=== PATIENT | female | born 1970 | race Caucasian/White ===

== ENCOUNTER 2019-09-18 10:12 | Emergency (ER) | payer OTHER, SELFPAY ==
[2019-09-18 10:14] VITALS: BP 126/74; BP 129/79; PULSE 72; PULSE 75; RESP 18; TEMP 36.4; O2SAT 95; BMI 36.3
--- NOTE | 2019-09-18 10:25 | CT_ITS ---
STUDY: CT BRAIN WITHOUT CONTRAST REASON FOR EXAM: Female, 49 years old. Head injury due to a fall. Laceration overlying the left orbit. RADIATION DOSAGE (If Supplied By Facility): CTDIvol = ( 44.99 ) mGy, DLP = ( 779.24 ) mGycm TECHNIQUE: Transaxial CT imaging of the brain was performed without administration of intravenous contrast material. Individualized dose optimization techniques were used for this CT. COMPARISON: No relevant priors. FINDINGS: Small soft tissue hematoma overlying the left periorbital region. Normal calvarium. Normal size ventricles and extra-axial spaces for the patient''s age. Normal white matter tracts of the cerebral hemispheres. Normal basal ganglia and thalami. Normal brainstem. Normal cerebellum. There is no intracranial hemorrhage. There are no findings of an acute ischemic infarction. Normal visualized paranasal sinuses. CT/Brain/Head without Contrast IMPRESSION: Small left periorbital hematoma. Electronically Signed: Saúl Lo, at 11:25 EST , Service support ,
--- NOTE | 2019-09-18 10:25 | CT_ITS ---
STUDY: CT CERVICAL SPINE WITHOUT CONTRAST REASON FOR EXAM: Female, 49 years old. Head injury due to a fall. RADIATION DOSAGE (If Supplied By Facility): CTDIvol = ( 25.72 ) mGy, DLP = ( 550.73 ) mGycm TECHNIQUE: High resolution transaxial imaging was performed without contrast material. Sagittal and coronal images were reconstructed. Individualized dose optimization techniques were used for this CT. COMPARISON: None FINDINGS: Normal craniovertebral junction. Normal anterior atlantoaxial articulation. Normal odontoid process. There is straightening of the normal cervical lordosis. Normal vertebral bodies and posterior osseous elements. C2-3: Normal endplates. Normal disc height and morphology. Normal central canal and intervertebral neuroforamina. C3-4: Normal endplates. Normal disc height and morphology. Normal central canal and intervertebral neuroforamina. C4-5: Normal endplates. Normal disc height and morphology. Normal central canal and intervertebral neuroforamina. C5-6: Moderate degree of disc space narrowing with posterior spondylosis. Posterior spondylosis with deformity of the thecal sac anteriorly. C6-7: Normal endplates. Normal disc height and morphology. Normal central canal and intervertebral neuroforamina. C7-T1: Normal endplates. Normal disc height and morphology. Normal central canal and intervertebral neuroforamina. Normal visualized soft tissue structures. CT/Spine Cervical without Contras IMPRESSION: Moderate degree of disc space narrowing and spondylosis at the C5-C6 level. Posterior spondylosis at the C5-C6 level with deformity of the anterior aspect of the thecal sac. Electronically Signed: Saúl Lo, at 11:26 EST , Service support ,
--- NOTE | 2019-09-18 10:26 | ED.VIS.FALL ---
History of Present Illness Chief Complaint: Fall Informant: Patient Occurred: Today Mechanism/Context: Same level fall, Slip Usually ambulates: Without assistance Quality of Pain: Aching Associated Symptoms: Parasthesias - hands Narrative: Patient is a 49-year-old female with history of bone spurs in her hip on diclofenac presenting after mechanical fall. Patient states she slipped on water at home and fell forward. She is hit her head in the door jam. Patient not lose consciousness. She was able to get herself back up and felt nauseous so she laid down again. She sustained an injury to her left eyebrow. She denies any vision changes. She is not sure her last tetanus was. She also notes that her hands feel tingly and painful. She not have any associated weakness. Patient arrived via EMS in a c-collar and on a board. Patient denies any weakness of her lower extremities. She denies any incontinence since the episode. She denies any other complaints at this time. Tetanus Immunization: Unknown Past Medical History - Allergies and Home Meds Allergies/Adverse Reactions: Allergies No Known Allergies Allergy (Verified 09/18/19 10:13) Primary Care Physician: Samuel Doctor,Out of [NON-STAFF] - Past Medical History: None Surgical History: noncontributory Review of Systems General: Denies: Chills, Fever, Sweats Eyes: Denies: Visual changes - bilaterally, Diplopia ENT: Denies: Rhinorrhea, Sore throat Cardiovascular: Denies: Chest pain, Palpitations Respiratory: Denies: Dyspnea, Cough, Dyspnea on exertion Gastrointestinal: Denies: Abdominal pain, Nausea, Vomiting, Diarrhea Genitourinary: Denies: Dysuria, Hematuria, Frequency Musculoskeletal: Denies: Back pain, Extremity Pain Skin: Reports: Abrasions - left eyebrow/cheek. Denies: Rash Neurological: Reports: Headache, Parasthesia - hands. Denies: Weakness, Numbness Hematologic: Denies: Easy bruising, Easy bleeding Physical Exam Vital Signs/Narrative: Vital Signs Temp Pulse Resp BP Pulse Ox 09/18/19 10:14 97.5 F L 72 18 129/79 H 95 Inital Vital Signs reviewed: Yes General: Well nourished, Well developed Head: Normocephalic, Trauma Eyes: Perrl, EOMI ENT: TM's clear, No hemotympanum or drainage, No trauma. Negative for: Nasal trauma, Nasal septal hematoma Neck: - - Immobilized in a c-collar Cardiovascular: Regular rate, Regular rhythm, No murmurs Respiratory: No distress, CTA bilaterally, Chest nontender Abdomen: Soft, Nontender, Nondistended, Normal bowel sounds Back: Nontender Skin: Normal color, No rash, Trauma - 2 mm superficial abrasion of the left forehead just above the eyebrow, 2 cm full-thickness linear laceration of the left superior cheek/lateral orbital area Neurological: Alert, Oriented x3, Cranial nerves II-XII grossly intact, Normal Strength, Parasthesia - Bilateral hands diffusely, normal sensation of the forearms and arms Psychological: Normal affect Diagnostic/Tx/Re-eval Clinical Impression(s) from Imaging Studies Brain CT 09/18/19 10:25 IMPRESSION: Small left periorbital hematoma. Electronically Signed: Saúl Wally, at 11:25 EST , Service support , Cervical Spine CT 09/18/19 10:25 IMPRESSION: Moderate degree of disc space narrowing and spondylosis at the C5-C6 level. Posterior spondylosis at the C5-C6 level with deformity of the anterior aspect of the thecal sac. Electronically Signed: Saúl Wally, at 11:26 EST , Service support , - Medical Decision Making Patient is evaluated after a mechanical fall at work this morning. She fell forward after slipping on water. Patient struck her head on the door jam. She states that she hyperextended her neck. She is now having paresthesias of her hands bilaterally. Patient is hemodynamically stable. She is not having numbness of her hands but continues to complain of paresthesias. It does not in a distinct dermatomal distribution. She does have a abrasion to her forehead as well as laceration below her left eyes and bruising of her left periorbital area. She is kept in a c-collar. She has no other tenderness or signs of injury. CT of the brain and C-spine are obtained. CT of the C-spine shows spondylosis of C5-6 as well as compression of the anterior thecal sac at that level. With this finding, I spoke with [facility] transfer line and patient will be transferred to the ER for further trauma/neuro eval. my concern is for central cord syndrome. Accepting physician is Dr. Jaramillo. Laceration repair and tetanus booster given in the emergency room. Patient does start to get very anxious and more bothered by her paresthesias in her hands just prior to discharge. She is given 0.5 mg IV Ativan. Patient is stable at time of transportation. She is not having progression of her neurologic symptoms. Patient is counseled that she will need her sutures removed in 5 to 7 days. Procedures - Lacerations No standard instances Length: 0.79 in Depth: Sub Q Shape: Linear Prep: Sterile Conditions, AmbarClelilia Irrigated (ml): 250 Number of Sutures/Gissel: 5 Suture Information: Ethilon, Simple, 6-0 ED Disposition - Plan for ED Patient: Disposition: [facility] Diagnosis: Paresthesia of hand, bilateral, Facial laceration Instructions: FALL, Mechanical Referrals: [facility] Doctor,Out of [NON-STAFF] -
[2019-09-18] MEDS: Diphth,Pertuss(Acell),Tet Vac 0.5 ML Vial IM (10:53)
--- NOTE | 2019-09-18 12:10 | NURSING ---
[facility] CALLED FOR TRANSFER
[2019-09-18 13:09] VITALS: BP 139/82; PULSE 71; PULSE 79; RESP 18; O2SAT 98; O2SAT 99
[2019-09-18] MEDS: LORazepam 2 MG/ML Syringe 0.5 MG IV (13:09)
== END 2019-09-18 13:13 | disposition short-term general hospital (02) ==
PROVIDERS: Emergency Provider Emergency Medicine
DX: S01.412A Laceration without foreign body of left cheek and temporomandibular area, initial encounter (principal); S00.81XA Abrasion of other part of head, initial encounter; S00.12XA Contusion of left eyelid and periocular area, initial encounter; R20.2 Paresthesia of skin; M76.9 Unspecified enthesopathy, lower limb, excluding foot; M47.812 Spondylosis without myelopathy or radiculopathy, cervical region; M48.02 Spinal stenosis, cervical region; W01.0XXA Fall on same level from slipping, tripping and stumbling without subsequent striking against object, initial encounter; Y93.9 Activity, unspecified; Y92.009 Unspecified place in unspecified non-institutional (private) residence as the place of occurrence of the external cause
CPT/HCPCS: 12011; 70450; 72125; 90715; 96374; 99284; A4216